=== PATIENT | female | born 1960 | race Caucasian/White ===

== ENCOUNTER 2017-10-20 08:19 | Day surgery (SDC) | END 2017-10-20 12:07 | disposition home or self-care (01) | DX: K42.9 Umbilical hernia without obstruction or gangrene (principal) | CPT/HCPCS: 49585; J2250; J2704; J3010; J7120 ==

== ENCOUNTER 2017-11-20 21:45 | Emergency (ER) | payer BC ==
[2017-11-20 21:54] VITALS: BP 123/73
[2017-11-20] MEDS ORDERED: Diphtheria,Pertussis(Acell),Tetanus Vaccine 0.5 ML SDV IM ONE (22:17)
[2017-11-20] MEDS ORDERED: Bacitracin/Neomycin/Polymyxin B Oint 0.9 GM U/D Packet TOP ONE (22:30)
--- NOTE | 2017-11-20 22:32 | EDM.PDOC ---
ED HPI GENERAL MEDICAL PROBLEM - General Chief Complaint: Laceration Stated Complaint: left scalp laceration Time Seen by Provider: 11/20/17 22:09 Source of Information: Reports: Patient History Limitations: Reports: No Limitations - History of Present Illness INITIAL COMMENTS - FREE TEXT/NARRATIVE: Patient sustained laceration on scalp due to ajar door on electrical box that was open in laundry room. No LOC. No other complaints. Left Head Pain Score (Numeric/FACES): 2 - Related Data Allergies Allergy/AdvReac Type Severity Reaction Status Date / Time No Known Allergies Allergy Verified 11/20/17 21:47 Home Meds: Home Meds . [No Known Home Meds] 08/25/16 [History] Past Medical History HEENT History: Reports: Impaired Vision, Other (See Below) Other HEENT History: wears glasses Cardiovascular History: Reports: None Other Cardiovascular History: Varicose vein removal L) leg approx 1988 Respiratory History: Reports: None Gastrointestinal History: Reports: None Genitourinary History: Reports: None ENVIRONMENTAL PROGRAMS SPECIALIST History: Reports: Other (See Below) Other OB/BYN History: Ovarian cyst removed 1986 Musculoskeletal History: Reports: None Neurological History: Reports: None Psychiatric History: Reports: None Endocrine/Metabolic History: Reports: None Hematologic History: Reports: None Immunologic History: Reports: None Oncologic (Cancer) History: Reports: None Dermatologic History: Reports: None - Past Surgical History Other HEENT Surgeries/Procedures: Dental Surgery and Dental implants in 2016 GI Surgical History: Reports: Hernia Repair/Other Other GI Surgeries/Procedures: hernia repair 10/20/17 Female Surgical History: Reports: Other (See Below) Other Female Surgeries/Procedures: Ovarian cyst removal in 1996 Social & Family History - Family History Oncologic: Reports: Colon - Tobacco Use Smoking Status *Q: Never Smoker - Caffeine Use Caffeine Use: Reports: Coffee - Recreational Drug Use Recreational Drug Use: No ED ROS GENERAL - Review of Systems Review Of Systems: ROS reveals no pertinent complaints other than HPI. ED EXAM, SKIN/RASH Exam: See Below Exam Limited By: No Limitations General Appearance: Alert, WD/WN, No Apparent Distress Eye Exam: Bilateral Eye: EOMI, PERRL Ears: Normal External Exam Nose: No: Nasal Deformity, Nasal Swelling, Nasal Drainage Throat/Mouth: Normal Lips, Normal Voice, No Airway Compromise Head: Atraumatic, Normocephalic Neck: Supple Respiratory/Chest: No Respiratory Distress Neurological: Alert, Oriented, Normal Cognition, Normal Gait Skin: Wound/Incision Location, Skin: Head Characteristics: Other (cut) Associated features: Tenderness ED SKIN PROCEDURES - Laceration/Wound Repair Left Head Lac/Wound length In cm: 2 Appearance: Subcutaneous, Linear, Clean Skin Prep: Saline Saline Irrigation (cc's): 10 Exploration/Debridement/Repair: Wound Explored, In a Bloodless Field, Explored to Base Closed with: Royal # of Sutures: 4 Drain Placement: No Sterile Dressing Applied: Nurse Tetanus Status Addressed: Yes Complications: No Course - Vital Signs Last Recorded V/S: Last Vital Signs Temp 36.7 C 11/20/17 21:52 Pulse 84 11/20/17 21:52 Resp 16 11/20/17 21:52 BP 123/73 11/20/17 21:52 Pulse Ox 100 11/20/17 21:52 - Orders/Labs/Meds Orders: Active Orders 24 hr Category Date Time Status Vaccines to be Administered [RC] PER UNIT ROUTINE Care 11/20/17 22:17 Ordered Meds: Medications Discontinued Medications Generic Name Dose Route Start Last Admin Trade Name Freq PRN Reason Stop Dose Admin Diphtheria/Tetanus/Acell Pertussis 0.5 ml 11/20/17 22:17 Adacel IM 11/20/17 22:18 .ONCE ONE Neomycin/Polymyxin/Bacitracin 1 each 11/20/17 22:30 Triple Antibiotic Oint TOP 11/20/17 22:31 ONETIME ONE - Re-Assessments/Exams Free Text/Narrative Re-Assessment/Exam: 11/20/17 22:30 wound repaired. Wound care discussed. Tetanus updated. Departure - Departure Time of Disposition: 22:30 Disposition: Home, Self-Care 01 Condition: Good Clinical Impression: Laceration of head Qualifiers: Encounter type: initial encounter Location of open wound of head: scalp Foreign body presence: without foreign body Qualified Code(s): S01.01XA - Laceration without foreign body of scalp, initial encounter - Discharge Information Instructions: Stitches, Columba, or Adhesive Wound Closure, [id number] Referrals: Peña Gleason ELECT[employer]CH[employer] TECH[employer]OLOGIST [Primary Care Provider] - Forms: ED Department Discharge Additional Instructions: Wound care as discussed. Follow up as needed if problems or signs of infection develop. Royal out in 7-8 days - My Orders Last 24 Hours: My Active Orders 11/20/17 22:17 Vaccines to be Administered [RC] PER UNIT ROUTINE - Assessment/Plan Last 24 Hours: My Active Orders 11/20/17 22:17 Vaccines to be Administered [RC] PER UNIT ROUTINE
== END 2017-11-20 22:45 | disposition home or self-care (01) ==
LOC: LL.ED 21:45
DX: S01.01XA Laceration without foreign body of scalp, initial encounter (principal); Z23 Encounter for immunization; W22.8XXA Striking against or struck by other objects, initial encounter
CPT/HCPCS: 12001; 90471; 90715; 99282